=== PATIENT | male | born 1930 | race Caucasian/White ===

== ENCOUNTER → 2018-01-08 | Outpatient (REF) | payer MEDICARE ==
[~2018-01-08] MED LIST: AMLOD/BENAZP1 CA5 PO; ASPIRIN LOW DOS81 M1 PO; FUROSEMIDE20 MG PO; METFORMIN500 M2 PO; OMEPRAZOLE20 M2 PO; PRAVASTATIN20 MG PO; SOTALOL HCL PO
[2018-01-08 08:58] LABS: ANION GAP 12 (6-22 (CALC)); BUN 15 mg/dL (8-23); BUN/CREATININE RATIO 17 (12-20 (CALC)); CARBON DIOXIDE 30 mmol/l (22-30); CHLORIDE 105 mmol/l (95-108); CREATININE 0.9 mg/dL (0.7-1.3); GFR > 60 ML/MIN (>=60 (CALC)); GFR FOR AFR.AMER. > 60 ML/MIN (>=60 (CALC)); POTASSIUM 4.5 mmol/l (3.5-5.1); SODIUM 142 mmol/l (137-146)
== END | disposition home or self-care (01) ==
LOC: LAB 07:38
PROVIDERS: ATTEND Nurse Practitioner Family
DX: E11.9 Type 2 diabetes mellitus without complications (principal); I10 Essential (primary) hypertension